=== PATIENT | female | born 1955 | race Caucasian/White ===

== ENCOUNTER → 2017-12-04 | Outpatient (CLI) | payer OTHER ==
[~2017-12-04] VITALS: Ht 174 cm; Wt 61.2 kg
[~2017-12-04] MED LIST: ALEVE PO; ALEVE220 MG PO; AUGMENTIN875 MG PO; CALCIUM 500 +1 EACH PO; CIPRO500 MG PO; FLAGYL500 MG PO; FLORASTOR250 MG PO; HYDROCODON-ACE1 EAC7 PO; LEVOFLOXACIN750 MG PO; MULTIPLE VITAM1 EACH PO; PERCOCET 5/31 TABLET PO; PRILOSEC20 MG PO; TYLENOL PM EX-1 EACH PO
== END | disposition home or self-care (01) ==
LOC: AMB 10:08
PROC: 0DBK8ZX Excision of Ascending Colon, Via Natural or Artificial Opening Endoscopic, Diagnostic (ICD-10-PCS; principal; 2017-12-04)
PROC: 0DBM8ZX Excision of Descending Colon, Via Natural or Artificial Opening Endoscopic, Diagnostic (ICD-10-PCS; principal; 2017-12-04)
DX: Z12.11 Encounter for screening for malignant neoplasm of colon (principal); D12.4 Benign neoplasm of descending colon; D12.2 Benign neoplasm of ascending colon; Z86.010 Personal history of colon polyps
CPT/HCPCS: 88305; J2250